=== PATIENT | male | born 2000 | race Two or more races ===

== ENCOUNTER 2018-08-03 21:36 | Inpatient (IN) | payer SELFPAY ==
[~2018-08-03] VITALS: Ht 167.6 cm; Wt 86.6 kg
[~2018-08-03 21:36] MED LIST: AMOX1TAB58 PO; LINE600T PO
[2018-08-03] MEDS ORDERED: ONDANSETRON PF 4 MG/2 ML VIAL. IV ONE (23:15)
[2018-08-03] MEDS ORDERED: IV NORMAL SALINE 1000ML BAG 1,000 ML IV ONE ×2 (23:15)
--- NOTE | 2018-08-03 23:22 | PHYS DOC ---
Past Medical History Past Medical History: No Pertinent History Past Surgical History: No Surgical History Additional Information: non smoker Alcohol Use: None Drug Use: Marijuana Adult General Chief Complaint Chief Complaint: INSECT BITE HPI HPI Patient is a 18 year old male who presents to the ER with a spider bite to his left forearm. He was seen at [facility] last night. Patient did not get his prescription filled. Patient does not like to take pills. Infection has spread outside of the line drawn last night and is streaking up his arm. Rates his pain as 8 out of 10 to care for the pain is sharp. Not tried any interventions at home. Review of Systems Review of Systems Constitutional: Denies fever or chills [] Eyes: Denies change in visual acuity, redness, or eye pain [] HENT: Denies nasal congestion or sore throat [] Respiratory: Denies cough or shortness of breath [] Cardiovascular: No additional information not addressed in HPI [] GI: Denies abdominal pain, nausea, vomiting, bloody stools or diarrhea [] : Denies dysuria or hematuria [] Musculoskeletal: Denies back pain or joint pain [] Integument: Denies rash or skin lesions but has infection to the left forearm. Neurologic: Denies headache, focal weakness or sensory changes [] Endocrine: Denies polyuria or polydipsia [] Complete systems were reviewed and found to be within normal limits, except as documented in this note. Current Medications Current Medications Current Medications Medications (Trade) Dose Ordered Sig/Shannan Start Time Stop Time Status Last Admin Dose Admin Clindamycin Phosphate 50 ml @ 100 mls/hr Q8HRS 08/04/18 06:00 UNV Ondansetron HCl (Zofran) 4 mg 1X ONCE 08/03/18 23:15 08/03/18 23:16 DC 08/03/18 23:37 4 MG Sodium Chloride 1,000 ml @ 1,000 mls/hr 1X ONCE 08/03/18 23:15 08/04/18 00:14 08/03/18 23:37 1,000 MLS/HR Allergies Allergies Allergies Coded Allergies Type Severity Reaction Last Updated Verified vancomycin Allergy Intermediate Rash, REDNESS 12/25/17 Yes Physical Exam Physical Exam Constitutional: Well developed, well nourished, no acute distress, non-toxic appearance. [] HENT: Normocephalic, atraumatic, bilateral external ears normal, oropharynx moist, no oral exudates, nose normal. [] Eyes: PERRLA, EOMI, conjunctiva normal, no discharge. [] Neck: Normal range of motion, no tenderness, supple, no stridor. [] Cardiovascular:Heart rate regular rhythm, no murmur [] Lungs & Thorax: Bilateral breath sounds clear to auscultation [] Abdomen: Bowel sounds normal, soft, no tenderness, no masses, no pulsatile masses. [] Skin: Warm, dry, no erythema, no rash with the exception of L forearm. Has cellulitis that is streaking up arm. Back: No tenderness, no CVA tenderness. [] Extremities: No tenderness, no cyanosis, no clubbing, ROM intact, no edema. [] Neurologic: Alert and oriented X 3, normal motor function, normal sensory function, no focal deficits noted. [] Psychologic: Affect normal, judgement normal, mood normal. [] Current Patient Data Vital Signs Vital Signs Date Time Temp Pulse Resp B/P (MAP) Pulse Ox O2 Delivery O2 Flow Rate FiO2 08/03/18 21:50 98.2 100 18 126/70 (88) 96 Room Air 98.2 Lab Values Laboratory Tests Test 08/03/18 23:25 White Blood Count 19.2 x10^3/uL (4.0-11.0) H Red Blood Count 4.55 x10^6/uL (4.30-5.70) Hemoglobin 12.2 g/dL (13.0-17.5) L Hematocrit 37.2 % (39.0-53.0) L Mean Corpuscular Volume 82 fL (79-100) Mean Corpuscular Hemoglobin 27 pg (25-35) Mean Corpuscular Hemoglobin Concent 33 g/dL (31-37) Red Cell Distribution Width 14.2 % (11.5-14.5) Platelet Count 175 x10^3/uL (140-400) Neutrophils (%) (Auto) 77 % (31-73) H Lymphocytes (%) (Auto) 13 % (24-48) L Monocytes (%) (Auto) 9 % (0-9) Eosinophils (%) (Auto) 1 % (0-3) Basophils (%) (Auto) 0 % (0-3) Neutrophils # (Auto) 14.7 x10^3uL (1.8-7.7) H Lymphocytes # (Auto) 2.6 x10^3/uL (1.0-4.8) Monocytes # (Auto) 1.6 x10^3/uL (0.0-1.1) H Eosinophils # (Auto) 0.2 x10^3/uL (0.0-0.7) Basophils # (Auto) 0.1 x10^3/uL (0.0-0.2) Platelet Estimate Pending Sodium Level 142 mmol/L (136-145) Potassium Level 3.1 mmol/L (3.5-5.1) L Chloride Level 104 mmol/L (98-107) Carbon Dioxide Level 27 mmol/L (21-32) Anion Gap 11 (6-14) Blood Urea Nitrogen 12 mg/dL (8-26) Creatinine 0.9 mg/dL (0.7-1.3) Estimated GFR (Cockcroft-Gault) 107.6 BUN/Creatinine Ratio 13 (6-20) Glucose Level 103 mg/dL (70-99) H Lactic Acid Level 0.6 mmol/L (0.4-2.0) Calcium Level 8.8 mg/dL (8.5-10.1) Total Bilirubin 1.1 mg/dL (0.2-1.0) H Aspartate Amino Transferase (AST) 17 U/L (15-37) Alanine Aminotransferase (ALT) 26 U/L (16-63) Alkaline Phosphatase 50 U/L (46-116) Total Protein 7.9 g/dL (6.4-8.2) Albumin 3.7 g/dL (3.4-5.0) Albumin/Globulin Ratio 0.9 (1.0-1.7) L Laboratory Tests 08/03/18 23:25 Laboratory Tests 08/03/18 23:25 EKG EKG [] Radiology/Procedures Radiology/Procedures [] Course & Med Decision Making Course & Med Decision Making Pertinent Labs and Imaging studies reviewed. (See chart for details) Will order labs, Clindamycin, fluids, and then admit to hospital. Patient is agreeable. Labs show a WBC count of 19, lactic of 0.6. Admitted to hospitalist Dr. Woo. Turned care over to Dr. Fuentes until he can relay information to Dr. Woo in the morning. Erick Disclaimer Erick Disclaimer This electronic medical record was generated, in whole or in part, using a voice recognition dictation system. Departure Departure Impression: Primary Impression: Cellulitis Disposition: ADMITTED INPATIENT Condition: STABLE Referrals: NO PCP (PCP) Problem Qualifiers Primary Impression: Cellulitis Site of cellulitis: extremity Site of cellulitis of extremity: upper extremity Laterality: left Qualified Codes: L03.114 - Cellulitis of left upper limb BAYRON WILDE APRN August 03, 2018 23:22
[2018-08-03 23:37] LABS: BASO # 0.1 x10^3/uL (0.0-0.2); BASO % 0 % (0-3); EOS # 0.2 x10^3/uL (0.0-0.7); EOS % 1 % (0-3); HEMATOCRIT 37.2 % (39.0-53.0); HEMOGLOBIN 12.2 g/dL (13.0-17.5); LYMPH # 2.6 x10^3/uL (1.0-4.8); LYMPH % 13 % (24-48); MEAN CORPUSCULAR HEMOGLOBIN 27 pg (25-35); MEAN CORPUSCULAR HGB CONC 33 g/dL (31-37); MEAN CORPUSCULAR VOLUME 82 fL (79-100); MONO # 1.6 x10^3/uL (0.0-1.1); MONO % 9 % (0-9); NEUT # 14.7 x10^3uL (1.8-7.7); NEUT % 77 % (31-73); PLATELET COUNT 175 x10^3/uL (140-400); RED BLOOD COUNT 4.55 x10^6/uL (4.30-5.70); RED CELL DISTRIBUTION WIDTH 14.2 % (11.5-14.5); WHITE BLOOD COUNT 19.2 x10^3/uL (4.0-11.0)
[2018-08-03 23:45] LABS: CALCIUM 8.8 mg/dL (8.5-10.1); CREATININE 0.9 mg/dL (0.7-1.3); GFR 107.6; POTASSIUM 3.1 mmol/L (3.5-5.1)
[2018-08-03 23:50] LABS: ALBUMIN 3.7 g/dL (3.4-5.0); ALBUMIN/GLOBULIN RATIO 0.9 (1.0-1.7); TOTAL BILIRUBIN 1.1 mg/dL (0.2-1.0); TOTAL PROTEIN 7.9 g/dL (6.4-8.2)
[2018-08-04] MEDS ORDERED: MORPHINE SULFATE 2 MG/ML VIAL. IV PRN (00:15)
[2018-08-04] MEDS ORDERED: ONDANSETRON PF 4 MG/2 ML VIAL. IV PRN (00:15)
[2018-08-04] MEDS ORDERED: POTASSIUM CHLORIDE 20 MEQ TABLET.ER. PO ONE (00:15)
[2018-08-04] MEDS ORDERED: ACETAMINOPHEN 325 MG TABLET. PO PRN (00:15)
[2018-08-04] MEDS ORDERED: CLINDAMYCIN 600MG PREMIX 50 ML IV ONE (01:15)
[2018-08-04 02:11] LABS: % BANDS 1 % (0-9); % LYMPHS 21 % (24-48); % MONOS 3 % (0-10); % SEGS 75 % (35-66)
[2018-08-04 02:12] VITALS: BP 106/61
[2018-08-04 02:12] LABS: PLT ESTIMATE ADEQUATE (ADEQUATE)
[2018-08-04] MEDS: CLINDAMYCIN 600MG PREMIX 50 ML IV SCH ×3 (05:16→21:21)
[2018-08-04 07:00] VITALS: BP 114/67
--- NOTE | 2018-08-04 08:22 | NUR ---
Patient with positive sepsis screen, [facility] [employer] COUNSEL[employer] notified, to review with Dr. Romo.
[2018-08-04 11:00] VITALS: BP 102/60
--- NOTE | 2018-08-04 11:17 | PDOC1 ---
History and Physical Date of Admission Date of Admission 08/04/2018 Identification/Chief Complaint Chief Complaint a spider bit me Problems: (1) Cellulitis Source Source: Chart review History of Present Illness History of Present Illness Patient is a 18 year old male who presents to the ER with a spider bite to his left forearm. He was seen at [facility] last night. Patient did not get his prescription filled. Patient does not like to take pills. In fection has spread outside of the line drawn last night and is streaking up his arm. Rates his pain as 8 out of 10 to care for the pain is sharp. Not tried any interventions at home. Patient denies history of trauma, no other significant medical problems, his only complaint during my visit is nausea and pain over the affected area, he denies fever or chills, no respiratory distress no chest pain or palpitation reported, denies abdomianl pain but has nad very little oral intake for 3 days now. Plan of care discussed in detail. all concerns addressed to the best of kyrie tomaszl. Past Medical History Cardiovascular: No pertinent hx Past Surgical History Past Surgical History: No pertinent history Family History Family History: Diabetes Social History ALCOHOL: none Drugs: None Current Problem List Problem List Problems Medical Problems: (1) Cellulitis Status: Acute Current Medications Current Medications Current Medications Medications (Trade) Dose Ordered Sig/Shannan Start Time Stop Time Status Last Admin Dose Admin Acetaminophen (Tylenol) 650 mg PRN Q4HRS PRN 08/04/18 00:15 08/05/18 00:14 Clindamycin Phosphate 50 ml @ 100 mls/hr 1X ONCE 08/04/18 01:15 08/04/18 01:44 DC 08/04/18 01:48 100 MLS/HR Morphine Sulfate (Morphine Sulfate) 2 mg PRN Q2HR PRN 08/04/18 00:15 08/05/18 00:14 08/04/18 00:43 2 MG Ondansetron HCl (Zofran) 4 mg PRN Q8HRS PRN 08/04/18 00:15 08/05/18 00:14 Potassium Chloride (Klor-Con) 40 meq 1X ONCE 08/04/18 00:15 08/04/18 00:16 DC 08/04/18 00:44 40 MEQ Sodium Chloride 1,000 ml @ 1,000 mls/hr 1X ONCE 08/03/18 23:15 08/04/18 00:14 DC 08/03/18 23:37 1,000 MLS/HR Allergies Allergies Allergies Coded Allergies Type Severity Reaction Last Updated Verified vancomycin Allergy Intermediate Rash, REDNESS 12/25/17 Yes ROS Review of System CONSTITUTIONAL: No fever or chills EYES: No recent changes SKIN: No rash or itching CARDIOVASCULAR: No chest pain, syncope, palpitations, or edema RESPIRATORY: No SOB or cough GASTROINTESTINAL: No nausea, vomiting or abdominal pain NEUROLOGICAL: No headaches or weakness ENDOCRINE: No cold or heat intolerance GENITOURINARY: No urgency or frequency of urination MUSCULOSKELETAL: No back pain or joint pain LYMPHATICS: No enlarged lymph nodes PSYCHIATRIC: No anxiety or depression Physical Exam Physical Exam GEN.: No apparent distress. Alert and oriented. HEENT: Head is normocephalic, atraumatic NECK: Supple. LUNGS: Clear to auscultation. HEART: RRR, S1, S2 present. Peripheral pulses intact ABDOMEN: Soft, nontender. Positive bowel sounds. EXTREMITIES: Without any cyanosis. NEUROLOGIC: Normal speech, normal tone PSYCHIATRIC: Normal affect, normal mood. SKIN: left arm cellulitis. with purulent discharge Vitals Vitals Vital Signs Date Time Temp Pulse Resp B/P (MAP) Pulse Ox O2 Delivery O2 Flow Rate FiO2 08/04/18 07:00 99.1 93 18 114/67 (83) 93 Room Air 99.1 Labs Labs Laboratory Tests Test 08/03/18 23:25 White Blood Count 19.2 x10^3/uL (4.0-11.0) Red Blood Count 4.55 x10^6/uL (4.30-5.70) Hemoglobin 12.2 g/dL (13.0-17.5) Hematocrit 37.2 % (39.0-53.0) Mean Corpuscular Volume 82 fL (79-100) Mean Corpuscular Hemoglobin 27 pg (25-35) Mean Corpuscular Hemoglobin Concent 33 g/dL (31-37) Red Cell Distribution Width 14.2 % (11.5-14.5) Platelet Count 175 x10^3/uL (140-400) Neutrophils (%) (Auto) 77 % (31-73) Lymphocytes (%) (Auto) 13 % (24-48) Monocytes (%) (Auto) 9 % (0-9) Eosinophils (%) (Auto) 1 % (0-3) Basophils (%) (Auto) 0 % (0-3) Neutrophils # (Auto) 14.7 x10^3uL (1.8-7.7) Lymphocytes # (Auto) 2.6 x10^3/uL (1.0-4.8) Monocytes # (Auto) 1.6 x10^3/uL (0.0-1.1) Eosinophils # (Auto) 0.2 x10^3/uL (0.0-0.7) Basophils # (Auto) 0.1 x10^3/uL (0.0-0.2) Segmented Neutrophils % 75 % (35-66) Band Neutrophils % 1 % (0-9) Lymphocytes % 21 % (24-48) Monocytes % 3 % (0-10) Platelet Estimate Adequate (ADEQUATE) Sodium Level 142 mmol/L (136-145) Potassium Level 3.1 mmol/L (3.5-5.1) Chloride Level 104 mmol/L (98-107) Carbon Dioxide Level 27 mmol/L (21-32) Anion Gap 11 (6-14) Blood Urea Nitrogen 12 mg/dL (8-26) Creatinine 0.9 mg/dL (0.7-1.3) Estimated GFR (Cockcroft-Gault) 107.6 BUN/Creatinine Ratio 13 (6-20) Glucose Level 103 mg/dL (70-99) Lactic Acid Level 0.6 mmol/L (0.4-2.0) Calcium Level 8.8 mg/dL (8.5-10.1) Total Bilirubin 1.1 mg/dL (0.2-1.0) Aspartate Amino Transf (AST/SGOT) 17 U/L (15-37) Alanine Aminotransferase (ALT/SGPT) 26 U/L (16-63) Alkaline Phosphatase 50 U/L (46-116) Total Protein 7.9 g/dL (6.4-8.2) Albumin 3.7 g/dL (3.4-5.0) Albumin/Globulin Ratio 0.9 (1.0-1.7) Laboratory Tests Test 08/03/18 23:25 White Blood Count 19.2 x10^3/uL (4.0-11.0) Red Blood Count 4.55 x10^6/uL (4.30-5.70) Hemoglobin 12.2 g/dL (13.0-17.5) Hematocrit 37.2 % (39.0-53.0) Mean Corpuscular Volume 82 fL (79-100) Mean Corpuscular Hemoglobin 27 pg (25-35) Mean Corpuscular Hemoglobin Concent 33 g/dL (31-37) Red Cell Distribution Width 14.2 % (11.5-14.5) Platelet Count 175 x10^3/uL (140-400) Neutrophils (%) (Auto) 77 % (31-73) Lymphocytes (%) (Auto) 13 % (24-48) Monocytes (%) (Auto) 9 % (0-9) Eosinophils (%) (Auto) 1 % (0-3) Basophils (%) (Auto) 0 % (0-3) Neutrophils # (Auto) 14.7 x10^3uL (1.8-7.7) Lymphocytes # (Auto) 2.6 x10^3/uL (1.0-4.8) Monocytes # (Auto) 1.6 x10^3/uL (0.0-1.1) Eosinophils # (Auto) 0.2 x10^3/uL (0.0-0.7) Basophils # (Auto) 0.1 x10^3/uL (0.0-0.2) Segmented Neutrophils % 75 % (35-66) Band Neutrophils % 1 % (0-9) Lymphocytes % 21 % (24-48) Monocytes % 3 % (0-10) Platelet Estimate Adequate (ADEQUATE) Sodium Level 142 mmol/L (136-145) Potassium Level 3.1 mmol/L (3.5-5.1) Chloride Level 104 mmol/L (98-107) Carbon Dioxide Level 27 mmol/L (21-32) Anion Gap 11 (6-14) Blood Urea Nitrogen 12 mg/dL (8-26) Creatinine 0.9 mg/dL (0.7-1.3) Estimated GFR (Cockcroft-Gault) 107.6 BUN/Creatinine Ratio 13 (6-20) Glucose Level 103 mg/dL (70-99) Lactic Acid Level 0.6 mmol/L (0.4-2.0) Calcium Level 8.8 mg/dL (8.5-10.1) Total Bilirubin 1.1 mg/dL (0.2-1.0) Aspartate Amino Transf (AST/SGOT) 17 U/L (15-37) Alanine Aminotransferase (ALT/SGPT) 26 U/L (16-63) Alkaline Phosphatase 50 U/L (46-116) Total Protein 7.9 g/dL (6.4-8.2) Albumin 3.7 g/dL (3.4-5.0) Albumin/Globulin Ratio 0.9 (1.0-1.7) VTE Prophylaxis Ordered VTE Prophylaxis Devices: Yes VTE Pharmacological Prophylaxi: No Assessment/Plan Assessment/Plan Left arm cellulitis moderate dehydration hyporexia leukocytosis secondary to infectious process Plan continue with clindamycin check for MRSA nares compazine for nausea will give protonix DVT prophylaxis: scd and teds Problem Qualifiers (1) Cellulitis: Site of cellulitis: extremity Site of cellulitis of extremity: upper extremity Laterality: left Qualified Codes: L03.114 - Cellulitis of left upper limb OKSANA PIERCE MD August 04, 2018 11:17
--- NOTE | 2018-08-04 11:23 | NUR ---
Wound Care Pt seen for wound care consultation re: a L arm wound. 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 Central wound is sloughy, draining a moderate amount of brown, purulent drainage, periwound is red and edematous. Wound flushed out with saline and packed with a small amount of Aquacel AG and covered with a foam dressing, change every 3 days. Provided pt teaching re: wound care and keeping wound clean and dry, extra supplies left with pt,pt v/u.
[2018-08-04] MEDS ORDERED: PROCHLORPERAZINE 10 MG/2 ML VIAL. IV PRN (11:30)
[2018-08-04] MEDS: PANTOPRAZOLE 40 MG TABLET.DR. PO SCH (12:01)
[2018-08-04 15:00] VITALS: BP 121/71
[2018-08-04 19:00] VITALS: BP 112/66
[2018-08-04] MEDS: LACTOBACILLUS RHAMNOSUS GG 1 CAPSULE. PO SCH (20:16)
[2018-08-04 23:00] VITALS: BP 100/62
[2018-08-05 03:00] VITALS: BP 117/65
[2018-08-05] MEDS: CLINDAMYCIN 600MG PREMIX 50 ML IV SCH (05:42)
[2018-08-05 07:00] VITALS: BP 104/66
[2018-08-05] MEDS: PANTOPRAZOLE 40 MG TABLET.DR. PO SCH (08:13)
[2018-08-05] MEDS: LACTOBACILLUS RHAMNOSUS GG 1 CAPSULE. PO SCH (08:13)
[2018-08-05] MEDS ORDERED: DOXYCYCLINE HYCLATE 100 MG TABLET PO SCH (09:00)
[2018-08-05] MEDS ORDERED: MUPIROCIN 2 % TOPICAL CREAM 30GM TUBE. TP SCH (09:00)
[2018-08-05 09:08] LABS: BASO % 0 % (0-3); EOS # 0.6 x10^3/uL (0.0-0.7); EOS % 5 % (0-3); HEMATOCRIT 38.2 % (39.0-53.0); HEMOGLOBIN 12.8 g/dL (13.0-17.5); LYMPH # 1.8 x10^3/uL (1.0-4.8); LYMPH % 16 % (24-48); MEAN CORPUSCULAR HEMOGLOBIN 28 pg (25-35); MEAN CORPUSCULAR HGB CONC 34 g/dL (31-37); MEAN CORPUSCULAR VOLUME 83 fL (79-100); MONO # 0.9 x10^3/uL (0.0-1.1); MONO % 8 % (0-9); NEUT # 7.9 x10^3uL (1.8-7.7); NEUT % 71 % (31-73); PLATELET COUNT 189 x10^3/uL (140-400); RED BLOOD COUNT 4.63 x10^6/uL (4.30-5.70); RED CELL DISTRIBUTION WIDTH 14.3 % (11.5-14.5); WHITE BLOOD COUNT 11.1 x10^3/uL (4.0-11.0)
[2018-08-05 09:20] LABS: CALCIUM 8.9 mg/dL (8.5-10.1); CREATININE 0.8 mg/dL (0.7-1.3); GFR 123.2; POTASSIUM 3.7 mmol/L (3.5-5.1)
[2018-08-05] MEDS ORDERED: MUPI15CR8 TP (10:48)
[2018-08-05] MEDS ORDERED: DOXY100T PO (10:48)
--- NOTE | 2018-08-05 10:52 | PDOC3 ---
Discharge Summary Visit Information Date of Admission: August 04, 2018 Date of Discharge: August 05, 2018 Admitting Diagnosis: Left arm cellulitis Final Diagnosis Problems Medical Problems: (1) Cellulitis Status: Acute Brief Hospital Course Allergies Allergies Coded Allergies Type Severity Reaction Last Updated Verified vancomycin Allergy Intermediate Rash, REDNESS 12/25/17 Yes Vital Signs Vital Signs Date Time Temp Pulse Resp B/P (MAP) Pulse Ox O2 Delivery O2 Flow Rate FiO2 08/05/18 08:15 Room Air 08/05/18 07:00 98.6 68 18 104/66 (79) 99 98.6 Lab Results Laboratory Tests Test 08/03/18 23:25 08/04/18 09:40 08/05/18 08:45 White Blood Count 19.2 x10^3/uL (4.0-11.0) 11.1 x10^3/uL (4.0-11.0) Red Blood Count 4.55 x10^6/uL (4.30-5.70) 4.63 x10^6/uL (4.30-5.70) Hemoglobin 12.2 g/dL (13.0-17.5) 12.8 g/dL (13.0-17.5) Hematocrit 37.2 % (39.0-53.0) 38.2 % (39.0-53.0) Mean Corpuscular Volume 82 fL (79-100) 83 fL (79-100) Mean Corpuscular Hemoglobin 27 pg (25-35) 28 pg (25-35) Mean Corpuscular Hemoglobin Concent 33 g/dL (31-37) 34 g/dL (31-37) Red Cell Distribution Width 14.2 % (11.5-14.5) 14.3 % (11.5-14.5) Platelet Count 175 x10^3/uL (140-400) 189 x10^3/uL (140-400) Neutrophils (%) (Auto) 77 % (31-73) 71 % (31-73) Lymphocytes (%) (Auto) 13 % (24-48) 16 % (24-48) Monocytes (%) (Auto) 9 % (0-9) 8 % (0-9) Eosinophils (%) (Auto) 1 % (0-3) 5 % (0-3) Basophils (%) (Auto) 0 % (0-3) 0 % (0-3) Neutrophils # (Auto) 14.7 x10^3uL (1.8-7.7) 7.9 x10^3uL (1.8-7.7) Lymphocytes # (Auto) 2.6 x10^3/uL (1.0-4.8) 1.8 x10^3/uL (1.0-4.8) Monocytes # (Auto) 1.6 x10^3/uL (0.0-1.1) 0.9 x10^3/uL (0.0-1.1) Eosinophils # (Auto) 0.2 x10^3/uL (0.0-0.7) 0.6 x10^3/uL (0.0-0.7) Basophils # (Auto) 0.1 x10^3/uL (0.0-0.2) 0.0 x10^3/uL (0.0-0.2) Segmented Neutrophils % 75 % (35-66) Band Neutrophils % 1 % (0-9) Lymphocytes % 21 % (24-48) Monocytes % 3 % (0-10) Platelet Estimate Adequate (ADEQUATE) Sodium Level 142 mmol/L (136-145) 141 mmol/L (136-145) Potassium Level 3.1 mmol/L (3.5-5.1) 3.7 mmol/L (3.5-5.1) Chloride Level 104 mmol/L (98-107) 106 mmol/L (98-107) Carbon Dioxide Level 27 mmol/L (21-32) 25 mmol/L (21-32) Anion Gap 11 (6-14) 10 (6-14) Blood Urea Nitrogen 12 mg/dL (8-26) 10 mg/dL (8-26) Creatinine 0.9 mg/dL (0.7-1.3) 0.8 mg/dL (0.7-1.3) Estimated GFR (Cockcroft-Gault) 107.6 123.2 BUN/Creatinine Ratio 13 (6-20) Glucose Level 103 mg/dL (70-99) 109 mg/dL (70-99) Lactic Acid Level 0.6 mmol/L (0.4-2.0) Calcium Level 8.8 mg/dL (8.5-10.1) 8.9 mg/dL (8.5-10.1) Total Bilirubin 1.1 mg/dL (0.2-1.0) Aspartate Amino Transf (AST/SGOT) 17 U/L (15-37) Alanine Aminotransferase (ALT/SGPT) 26 U/L (16-63) Alkaline Phosphatase 50 U/L (46-116) Total Protein 7.9 g/dL (6.4-8.2) Albumin 3.7 g/dL (3.4-5.0) Albumin/Globulin Ratio 0.9 (1.0-1.7) Nasal Screen MRSA (PCR) Positive (Negative) Laboratory Tests Test 08/05/18 08:45 White Blood Count 11.1 x10^3/uL (4.0-11.0) Red Blood Count 4.63 x10^6/uL (4.30-5.70) Hemoglobin 12.8 g/dL (13.0-17.5) Hematocrit 38.2 % (39.0-53.0) Mean Corpuscular Volume 83 fL (79-100) Mean Corpuscular Hemoglobin 28 pg (25-35) Mean Corpuscular Hemoglobin Concent 34 g/dL (31-37) Red Cell Distribution Width 14.3 % (11.5-14.5) Platelet Count 189 x10^3/uL (140-400) Neutrophils (%) (Auto) 71 % (31-73) Lymphocytes (%) (Auto) 16 % (24-48) Monocytes (%) (Auto) 8 % (0-9) Eosinophils (%) (Auto) 5 % (0-3) Basophils (%) (Auto) 0 % (0-3) Neutrophils # (Auto) 7.9 x10^3uL (1.8-7.7) Lymphocytes # (Auto) 1.8 x10^3/uL (1.0-4.8) Monocytes # (Auto) 0.9 x10^3/uL (0.0-1.1) Eosinophils # (Auto) 0.6 x10^3/uL (0.0-0.7) Basophils # (Auto) 0.0 x10^3/uL (0.0-0.2) Sodium Level 141 mmol/L (136-145) Potassium Level 3.7 mmol/L (3.5-5.1) Chloride Level 106 mmol/L (98-107) Carbon Dioxide Level 25 mmol/L (21-32) Anion Gap 10 (6-14) Blood Urea Nitrogen 10 mg/dL (8-26) Creatinine 0.8 mg/dL (0.7-1.3) Estimated GFR (Cockcroft-Gault) 123.2 Glucose Level 109 mg/dL (70-99) Calcium Level 8.9 mg/dL (8.5-10.1) Brief Hospital Course Patient is a 18 year old male who presents to the ER with a spider bite to his left forearm. He was seen at [facility] last night. Patient did not get his prescription filled. Patient does not like to take pills. Infection has spread outside of the line drawn last night and is streaking up his arm. Rates his pain as 8 out of 10 to care for the pain is sharp. Not tried any interventions at home. Patient denies history of trauma, no other significant medical problems, his only complaint during my visit is nausea and pain over the affected area, he denies fever or chills, no respiratory distress no chest pain or palpitation reported, denies abdominal pain but has very little oral intake for 3 days now. Plan of care discussed in detail. all concerns addressed to the best of my abilities Patient was transitioned to oral doxycycline and started on mupirocin as well. His cellulitis improved, pain improved, he did not present fever during his hospital stay and was hemodynamically stable to be discharged hoem with instructions to follow up with the wound clinic. Signs and symptoms fo alarm discussed prior to discharge. All concerns addressed to the best of my abilities. Gen.: well-developed well-nourished in no apparent distress Head: Normal shape atraumatic Eyes: Pupils equal reactive to light and accommodation, normal conjunctivae and lids Ears: Normal shape Nose: Normal shape no trauma Mouth: No exudates of the back of throat no thrush no lesions Neck: Supple no JVD no carotid bruit or lymphadenopathy no thyromegaly Chest: Lungs clear to auscultation with good inspiratory effort no crackles rales or rhonchi Cardiovascular: S1-S2 regular rhythm no murmurs gallops or rubs Abdomen: Bowel sounds present soft nontender no hepatosplenomegaly appreciated sign Extremities: No clubbing no cyanosis no edema peripheral pulses palpated bilaterally Neurological: Alert awake oriented in person time place and situation, cranial nerves II through XII intact, no motor or sensory deficits appreciated Psych: Appropriate mood, cooperative Discharge Information Condition at Discharge: Improved Follow Up: Weeks (primary care physician in one week) Disposition/Orders: D/C to Home Scheduled Doxycycline Hyclate (Doxycycline Hyclate) 100 Mg Tablet, 100 MG PO BID for MRSA for 7 Days, #14 Prescribed by: OKSANA PIERCE MD on 08/05/18 1048 Mupirocin Calcium (Mupirocin Cream) 15 Gm Cream..g., 1 MIKE TP BID for MRSA for 7 Days, #14 Prescribed by: OKSANA PIERCE MD on 08/05/18 1048 Discontinued Medications Amoxicillin/Potassium Clav (Augmentin 500-125 Tablet) 1 Each Tablet, 1 TAB PO BID, #14 Prescribed by: SIAV BISHOP MD on 12/28/17 1015 Linezolid (Zyvox) 600 Mg Tablet, 600 MG PO BID for 14 Days, #28 Prescribed by: SIVA IBSHOP MD on 12/28/17 1015 OKSANA PIERCE MD August 05, 2018 10:52
[2018-08-05 11:00] VITALS: BP 117/69
--- NOTE | 2018-08-05 15:36 | NUR ---
Discharge Note: [facility] Discharge instructions and discharge home medications reviewed with Patient and a copy given. All questions have been answered and understanding verbalized. The following instructions and handouts were given: cellulitis, wound infection, spider bite. Discontinued lines and drains: peripheral IV in right wrist removed, catheter intact. Patient discharged to home with self-care via ambulation to private vehicle. Patient and S/O shown how to change dressing. Pt. given wound care clinic's telephone number and educated on dressing changes/wound care. Pt. informed this nurse he would call wound care clinic on Tuesday (08/07/2018) for further evaluation and instruction. Pt. given supplies to change, clean, and reinforce dressing as needed over the weekend.
== END 2018-08-05 14:55 | disposition home or self-care (01) | DRG 918 ==
LOC: ER 21:36 → 6 SOUTH 08-04 00:30
PROVIDERS: ADMIT Internal Medicine; ATTEND Internal Medicine
DX: T63.301A Toxic effect of unspecified spider venom, accidental (unintentional), initial encounter (principal); L03.114 Cellulitis of left upper limb; E86.0 Dehydration; Y92.89 Other specified places as the place of occurrence of the external cause; Z88.1 Allergy status to other antibiotic agents; Z83.3 Family history of diabetes mellitus
CPT/HCPCS: 36415; 80048; 80053; 83605; 85007; 85025; 87040; 87070; 87186; 87641; 96361; 96374; 96375; J2270; J2405; J3490; J7030; 99285-25

== ENCOUNTER 2018-12-12 16:48 | Emergency (ER) | payer SELFPAY ==
[~2018-12-12] VITALS: Ht 167.6 cm; Wt 83.5 kg
[~2018-12-12 16:48] MED LIST changes: +DOXY100T PO; -LINE600T PO; +LINE600T37 PO; +MUPI15CR8 TP
--- NOTE | 2018-12-12 17:12 | PHYS DOC ---
Past Medical History Past Medical History: No Pertinent History Past Surgical History: No Surgical History Alcohol Use: None Drug Use: Marijuana Adult General Chief Complaint Chief Complaint: WOUND CHECK [facility] HPI Patient is a 18 year old white male presents to ED complaining of insect bite to right calf times one day ago. States he had an insect bite to his right lower calf. States he woke up with it. He is unsure what he was bit by. Pea-sized insect bite to right calf. Denies fever, weakness, red streaking, chills, nausea/vomiting, headache or dizziness. Review of Systems Review of Systems Constitutional: Denies fever or chills [] Eyes: Denies change in visual acuity, redness, or eye pain [] HENT: Denies nasal congestion or sore throat [] Respiratory: Denies cough or shortness of breath [] Cardiovascular: No additional information not addressed in HPI [] GI: Denies abdominal pain, nausea, vomiting, bloody stools or diarrhea [] : Denies dysuria or hematuria [] Musculoskeletal: Denies back pain or joint pain [] Integument: Complains of insect bite. Denies rash or skin lesions [] Neurologic: Denies headache, focal weakness or sensory changes [] All other systems were reviewed and found to be within normal limits, except as documented in this note. Allergies Allergies Allergies Coded Allergies Type Severity Reaction Last Updated Verified vancomycin Allergy Intermediate Rash, REDNESS 12/25/17 Yes I S O L A T I O N *CONTACT* Allergy Unknown 08/07/18 Yes Physical Exam Physical Exam Constitutional: Well developed, well nourished, no acute distress, non-toxic appearance. [] HENT: Normocephalic, atraumatic Skin: Insect bite to right calf. No surrounding erythema, abscess or fluctuance. Warm, dry, no erythema, no rash. [] Back: No tenderness, no CVA tenderness. [] Extremities: No bony tenderness, no cyanosis, no clubbing, ROM intact, no edema. [] Neurologic: Alert and oriented X 3, normal motor function, normal sensory function, no focal deficits noted. [] Psychologic: Affect normal, judgement normal, mood normal. [] EKG EKG [] Radiology/Procedures Radiology/Procedures [] Course & Med Decision Making Course & Med Decision Making Pertinent Labs and Imaging studies reviewed. (See chart for details) []Discussed insect bite treatment. Discussed follow-up and reasons to return to the ED. Patient understands and agrees with plan. Dragon Disclaimer Dragon Disclaimer This electronic medical record was generated, in whole or in part, using a voice recognition dictation system. Departure Departure Impression: Primary Impression: Insect bite Disposition: 01 HOME, SELF-CARE Condition: IMPROVED Referrals: NO PCP (PCP) BAYRON PORTER MD Patient Instructions: Insect Bite EDA CALLOWAY Dec 12, 2018 17:12
[2018-12-12 17:56] VITALS: BP 138/65
== END 2018-12-12 18:05 | disposition home or self-care (01) ==
LOC: ER 16:48
DX: S80.861A Insect bite (nonvenomous), right lower leg, initial encounter (principal); Z88.1 Allergy status to other antibiotic agents; Z91.041 Radiographic dye allergy status; W57.XXXA Bitten or stung by nonvenomous insect and other nonvenomous arthropods, initial encounter; Y93.89 Activity, other specified; Y92.89 Other specified places as the place of occurrence of the external cause; Y99.8 Other external cause status
CPT/HCPCS: 99281